=== PATIENT | female | born 1995 | race Caucasian/White ===

== ENCOUNTER 2024-04-21 14:14 | Day surgery (SDC) | payer OTHER ==
[2024-04-21 14:53] VITALS: BMI 26.6
[2024-04-21] MEDS ORDERED: Lactated Ringer's 1,000 ML IV SCH (15:00)
[2024-04-21 15:57] LABS: Fetal Membranes Rupture No Membranes Rupture (No Rupture)
[2024-04-21 16:33] LABS: Bilirubin Neg (Negative); Blood, Urine Negative (Negative); Clarity Clear (Clear); Glucose, Urine (Dipstick) Normal (Negative); Ketone, Urine Negative (Negative); Leukocyte Negative (Negative); Nitrite Negative (Negative); Protein, Urine (Dipstick) 15 mg/dl (Neg-Trace); Urobilinogen Normal mg/dL (Less than 2)
[2024-04-21 16:40] LABS: Bacteria/HPF Rare-Few HPF (None Seen); CAUTI Indications for Culture Pregnancy; Mucous/LPF Rare LPF (<2+); RBC/HPF 0-3 HPF (0-3); Transitional Epithelial 0-3 HPF (None Seen); WBC/HPF 0-3 HPF (0-3)
[2024-04-21 16:42] LABS: Urine Culture Reflex No No; Urine Culture Reflex Yes Yes
[2024-04-21] MEDS: Pepto Bismol Chew TAB PO SCH (18:32)
[2024-04-21] MEDS: Cyclobenzaprine 10 MG TAB PO SCH (18:32)
[2024-04-21] MEDS: Simethicone Chewable 80 MG TAB PO SCH (18:32)
== END 2024-04-21 19:38 | disposition home or self-care (01) ==
LOC: CSHLD/OP 14:14
PROVIDERS: ATTEND Obstetrics & Gynecology
DX: O99.891 Other specified diseases and conditions complicating pregnancy (principal); R10.9 Unspecified abdominal pain; Z79.899 Other long term (current) drug therapy; Z3A.33 33 weeks gestation of pregnancy
CPT/HCPCS: 81001; 84112; 87086; 96360; 96361; 99285

== ENCOUNTER 2024-04-30 12:06 | Day surgery (SDC) | payer OTHER ==
[2024-04-30] MEDS ORDERED: hydrALAZINE 20 MG/ML VIAL SLOW IVP PRN (12:31)
[2024-04-30 14:41] VITALS: BMI 27.6
== END 2024-04-30 14:45 | disposition home or self-care (01) ==
LOC: CSHLD/OP 12:06
PROVIDERS: ATTEND Family Medicine
DX: O36.5930 Maternal care for other known or suspected poor fetal growth, third trimester, not applicable or unspecified (principal); Z3A.34 34 weeks gestation of pregnancy; Z79.82 Long term (current) use of aspirin; Z79.899 Other long term (current) drug therapy
CPT/HCPCS: 59025; 76819; 99282

== ENCOUNTER 2024-05-19 05:30 | Inpatient (IN) | payer OTHER ==
[2024-05-19 06:42] VITALS: BMI 27.4
[2024-05-19] MEDS ORDERED: Misoprostol 200 MCG TAB PR PRN (06:44)
[2024-05-19] MEDS ORDERED: fentaNYL 50 mcg/mL 1 mL Vial SLOW IVP PRN (06:44)
[2024-05-19] MEDS ORDERED: Ondansetron PF 4 MG/2 ML Vial IVP PRN (06:44)
[2024-05-19] MEDS ORDERED: Tranexamic Acid 1,000 MG/10 ML VIAL IVP PRN (06:44)
[2024-05-19] MEDS ORDERED: Carboprost 250 MCG/ML AMP IM PRN (06:44)
[2024-05-19] MEDS ORDERED: hydrALAZINE 20 MG/ML VIAL SLOW IVP PRN (06:44)
[2024-05-19] MEDS ORDERED: Acetaminophen 500 MG TAB PO PRN (06:44)
[2024-05-19] MEDS ORDERED: Promethazine HCl 25 MG/ML VIAL IM PRN (06:44)
[2024-05-19] MEDS ORDERED: Ibuprofen 800 MG TAB PO PRN (06:44)
[2024-05-19] MEDS ORDERED: Diphenoxylate HCl/Atropine Tablet PO PRN ×2 (06:44)
[2024-05-19] MEDS ORDERED: Lidocaine 1% (PF) 30 ML VIAL SC PRN (06:44)
[2024-05-19] MEDS ORDERED: Oxytocin 30 units/NS 500 ML 500 ML IV SCH ×3 (06:44)
[2024-05-19 07:40] LABS: Hematocrit 31.8 % (34.9-44.5); Hemoglobin 11.2 g/dL (12.0-15.5); Mean Corpuscular HGB CONC 35.2 g/dL (32.0-36.0); Mean Corpuscular Hemoglobin 32.8 pg (27.0-33.0); Mean Corpuscular Volume 93.3 fL (81.6-98.3); Mean Platelet Volume 11.5 fL (7.4-10.4); Platelet Count 174 10x3/uL (150-450); RBC Distribution Width 13.7 % (11.5-14.5); Red Blood Cell (RBC) Count 3.41 10x6/uL (3.90-5.03); White Blood Cell (WBC) Count 10.6 10x3/uL (3.5-10.5)
[2024-05-19] MEDS: Lactated Ringer's 1,000 ML IV SCH (07:48)
[2024-05-19] MEDS: Misoprostol 100 MCG TAB VAG SCH (07:48)
[2024-05-19 07:53] LABS: Syphilis Antibody Nonreactive (Nonreactive); Syphilis Antibody Index 0.04 S/CO (<1.00 Non-Reactive)
[2024-05-19 07:54] LABS: HBsAg Index 0.21 S/CO (0-0.99); Hep B Surf Ag - L&D Non-Reactive S/CO (NonReactive)
[2024-05-19 09:09] LABS: Amphetamine Not Detected (NotDetected); Barbiturates Screen Not Detected (NotDetected); Benzodiazepine Screen Not Detected (NotDetected); Cocaine Metabolite Screen Not Detected (NotDetected); Methadone Not Detected (NotDetected); Methamphetamine Not Detected (NotDetected); Opiate Screen Not Detected (NotDetected); Oxycodone Screen Not Detected (NotDetected); Phencyclidine (PCP) Not Detected (NotDetected); THC/Cannabinoid Screen Not Detected (NotDetected); Tricyclic Screen Not Detected (NotDetected)
[2024-05-19] MEDS: fentaNYL/Ropivacaine Epidural 100 ML ONE (16:02)
[2024-05-19] MEDS ORDERED: Moisturizing Cream (Eucerin) 113 GM JAR TOP PRN (17:07)
[2024-05-19] MEDS ORDERED: ePHEDrine Sulfate 50 MG/10 ML VIAL SLOW IVP PRN (17:07)
[2024-05-19] MEDS ORDERED: Lactated Ringer's 500 ML IV PRN (17:07)
[2024-05-19] MEDS ORDERED: Acetaminophen 325 MG TAB PO PRN (17:07)
[2024-05-19] MEDS ORDERED: Naloxone HCl 0.4 mg/ml Vial IVP PRN ×2 (17:07)
[2024-05-19] MEDS ORDERED: diphenhydrAMINE 50 MG/ML VIAL IVP PRN (17:07)
[2024-05-19] MEDS ORDERED: Communication Order-Pharmacy FS SCH (17:15)
[2024-05-19] MEDS: Ondansetron PF 4 MG/2 ML Vial IVP PRN (19:48)
[2024-05-19] MEDS: Promethazine HCl 25 MG/ML VIAL IM PRN (20:17)
[2024-05-20] MEDS: fentaNYL 2 mcg/Ropivacaine 0.2% Epidural 100 ML CADD EPIDURAL SCH (02:19)
[2024-05-20 03:39] LABS: Analyzer IN Cardio CS NICU; RapidComm Collect By RN; pH (Cord, venous) 7.328 (7.250-7.350)
[2024-05-20] MEDS ORDERED: ePHEDrine Sulfate 50 MG/10 ML VIAL SLOW IVP PRN (03:39)
[2024-05-20] MEDS ORDERED: Naloxone HCl 0.4 mg/ml Vial IVP PRN ×4 (03:39)
[2024-05-20] MEDS ORDERED: Naloxone HCl 0.4 mg/ml Vial IV PRN (03:39)
[2024-05-20] MEDS ORDERED: Lactated Ringer's 500 ML IV PRN (03:39)
[2024-05-20] MEDS ORDERED: Moisturizing Cream (Eucerin) 113 GM JAR TOP PRN ×2 (03:39)
[2024-05-20] MEDS ORDERED: Meperidine HCl/PF 25 MG (1 mL) VIAL SLOW IVP PRN (03:39)
[2024-05-20] MEDS ORDERED: Ondansetron PF 4 MG/2 ML Vial IVP PRN ×4 (03:39→06:43)
[2024-05-20] MEDS ORDERED: Promethazine HCl 25 MG/ML VIAL IM PRN ×3 (03:39→06:43)
[2024-05-20] MEDS ORDERED: fentaNYL 50 mcg/mL 1 mL Vial SLOW IVP PRN (03:39)
[2024-05-20] MEDS ORDERED: diphenhydrAMINE 50 MG/ML VIAL IVP PRN (03:39)
[2024-05-20 03:40] LABS: Analyzer IN Cardio CS NICU; RapidComm Collect By RN
[2024-05-20] MEDS ORDERED: fentaNYL 2 mcg/Ropivacaine 0.2% Epidural 100 ML CADD EPIDURAL SCH (03:45)
[2024-05-20] MEDS ORDERED: Communication Order-Pharmacy FS SCH ×2 (03:45)
[2024-05-20] MEDS: Ketorolac Tromethamine 30 MG (1 mL) VIAL IVP SCH (05:27)
[2024-05-20] MEDS ORDERED: Lanolin Ointment 7 GM TUBE TOP PRN (06:43)
[2024-05-20] MEDS ORDERED: hydrALAZINE 20 MG/ML VIAL SLOW IVP PRN (06:43)
[2024-05-20] MEDS ORDERED: Bisacodyl 10 MG SUPP PR PRN (06:43)
[2024-05-20] MEDS ORDERED: Oxytocin 30 units/NS 500 ML 500 ML IV SCH (06:43)
[2024-05-20] MEDS ORDERED: Misoprostol 200 MCG TAB PR PRN (06:43)
[2024-05-20] MEDS: CEFAZOLIN 2 GM VIAL ONE (06:47)
[2024-05-20] MEDS: Azithromycin 500 MG VIAL ONE (06:47)
[2024-05-20] MEDS: Ondansetron PF 4 MG/2 ML Vial ONE (06:48)
[2024-05-20] MEDS: Promethazine HCl 25 MG/ML VIAL ONE (06:48)
[2024-05-20] MEDS: Oxytocin 10 UNITS/ML VIAL ONE (06:48)
[2024-05-20] MEDS: Morphine PF 10 MG/10 ML VIAL ONE (06:48)
[2024-05-20] MEDS: PHENYLEPHRINE-NS 100 MCG/ML 10 ML SYRINGE ONE ×2 (06:48→06:49)
[2024-05-20] MEDS: fentaNYL 50 mcg/mL 1 mL Vial SLOW IVP SCH ×2 (10:24→15:09)
[2024-05-20] MEDS: Ferrous Sulfate 325 MG TAB PO SCH (11:46)
[2024-05-20] MEDS: Docusate 100 MG CAP PO SCH (11:46)
[2024-05-20] MEDS: Boostrix 0.5 ML (Tdap) VIAL (>/=7 yrs of age) IM ONE (11:46)
[2024-05-20] MEDS: Prenatal Vitamin 1 TAB PO SCH (11:47)
[2024-05-20] MEDS: Ketorolac Tromethamine 30 MG (1 mL) VIAL IVP PRN (11:58)
[2024-05-20 12:21] LABS: Hematocrit 22.5 % (34.9-44.5); Hemoglobin 7.8 g/dL (12.0-15.5); Mean Corpuscular HGB CONC 34.7 g/dL (32.0-36.0); Mean Corpuscular Hemoglobin 33.5 pg (27.0-33.0); Mean Corpuscular Volume 96.6 fL (81.6-98.3); Mean Platelet Volume 11.3 fL (7.4-10.4); Platelet Count 147 10x3/uL (150-450); RBC Distribution Width 14.2 % (11.5-14.5); Red Blood Cell (RBC) Count 2.33 10x6/uL (3.90-5.03); White Blood Cell (WBC) Count 14.6 10x3/uL (3.5-10.5)
[2024-05-20] MEDS: diphenhydrAMINE 50 MG/ML VIAL IVP PRN (13:49)
[2024-05-20] MEDS: diphenhydrAMINE 25 MG CAP PO PRN (15:09)
[2024-05-20] MEDS: HYDROcodone/Acetaminophen 5/325 mg Tablet PO PRN (18:09)
[2024-05-21] MEDS: Simethicone Chewable 80 MG TAB PO PRN (08:59)
[2024-05-21] MEDS: Ibuprofen 800 MG TAB PO SCH (08:59)
[2024-05-21] MEDS: fentaNYL 50 mcg/mL 1 mL Vial SLOW IVP SCH (10:57)
[2024-05-21] MEDS ORDERED: Iopamidol 300 61% 100 ML VIAL FS ONE (10:57)
[2024-05-21] MEDS: Acetaminophen 325 MG TAB PO PRN (18:14)
[2024-05-21 18:44] LABS: Hemoglobin 7.4 g/dL (12.0-15.5)
[2024-05-21] MEDS: Polyethylene Glycol 3350 17 GM Packet PO SCH (20:23)
[2024-05-21] MEDS: HYDROcodone/Acetaminophen 5/325 mg Tablet PO PRN (23:59)
[2024-05-22 07:47] VITALS: BP 106/68; TEMP 98.2
[2024-05-22] MEDS: Polyethylene Glycol 3350 17 GM Packet PO SCH (08:38)
[2024-05-22] MEDS: Milk Of Magnesia 30 ML UDCUP PO SCH (10:21)
== END 2024-05-22 12:22 | disposition home or self-care (01) | DRG 786 ==
LOC: CSHLD 05:52 → CSHPP 05-20 06:30
PROVIDERS: ADMIT Family Medicine; ATTEND Family Medicine
PROC: 10907ZC Drainage of Amniotic Fluid, Therapeutic from Products of Conception, Via Natural or Artificial Opening (ICD-10-PCS; principal; 2024-05-19)
PROC: 10H07YZ Insertion of Other Device into Products of Conception, Via Natural or Artificial Opening (ICD-10-PCS; 2024-05-19)
PROC: 10D00Z1 Extraction of Products of Conception, Low, Open Approach (ICD-10-PCS; 2024-05-20)
DX: O36.5930 Maternal care for other known or suspected poor fetal growth, third trimester, not applicable or unspecified (principal); O45.93 Premature separation of placenta, unspecified, third trimester; O72.1 Other immediate postpartum hemorrhage; D62 Acute posthemorrhagic anemia; N13.30 Unspecified hydronephrosis; Z37.0 Single live birth; Z3A.37 37 weeks gestation of pregnancy; O76 Abnormality in fetal heart rate and rhythm complicating labor and delivery; O99.03 Anemia complicating the puerperium; O99.893 Other specified diseases and conditions complicating puerperium
CPT/HCPCS: 36415; 51702; 72194; 80306; 82805; 85014; 85018; 85027; 86780; 86850; 86900; 86901; 87340; J1200; J1885; J2274; J2405; J2550; J2590; J3010; J7120; Q9967